=== PATIENT | male | born 1980 ===

== ENCOUNTER 2018-06-17 22:56 | Emergency (ER) | payer MEDICAID ==
[~2018-06-17] VITALS: Ht 170.2 cm; Wt 87.1 kg
[~2018-06-17 22:56] MED LIST: AMOX500 PO; CLIN150 PO; FLUO20 PO; HYDACE5 PO; HYDACE5325 PO; IBUP800 PO; PENVK500 PO
[2018-06-17 23:28] LABS: BASOPHILS ABSOLUTE AUTO 0.03 K/mm3 (0.00-0.23); BASOPHILS PERCENT AUTO 0 % (0-2); EOSINOPHILS ABSOLUTE AUTO 0.55 K/mm3 (0.00-0.68); EOSINOPHILS PERCENT AUTO 6 % (0-6); Hemoglobin 14.9 g/dL (13.5-17.5); IMMATURE GRAN ABSOLUTE AUTO 0.04 K/mm3 (0.00-0.10); IMMATURE GRAN PERCENT AUTO 0 % (0-1); LYMPHOCYTES ABSOLUTE AUTO 3.67 K/mm3 (0.84-5.20); LYMPHOCYTES PERCENT AUTO 37 % (21-46); MONOCYTES ABSOLUTE AUTO 0.76 K/mm3 (0.16-1.47); MONOCYTES PERCENT AUTO 8 % (4-13); Mean Corpuscular HGB 32.3 pg (26.0-34.0); Mean Corpuscular HGB Conc 33.9 g/dL (31.5-36.5); Mean Corpuscular Volume 95 fL (80-100); Mean Platelet Volume 10.4 fL (9.1-12.4); NEUTROPHILS ABSOLUTE AUTO 4.88 K/mm3 (1.96-9.15); NEUTROPHILS PERCENT AUTO 49 % (41-73); Platelet Count 275 K/mm3 (150-400); RDW Coefficient Variation 12.8 % (11.7-14.2); RDW Standard Deviation 44.8 fL (35.1-46.3); Red Blood Cell Count 4.62 M/mm3 (4.30-5.90); White Blood Cell Count 9.93 K/mm3 (4.00-11.30)
[2018-06-17 23:45] LABS: Alanine Aminotransfer (ALT/SGP 80 U/L (12-78); Albumin, Blood 3.5 g/dL (3.4-5.0); Albumin/Globulin Ratio 0.9 (0.8-1.8); Alk Phos 79 U/L (50-136); Anion Gap 6 mmol/L (6-16); Aspartate Aminotrans (AST/SGOT 46 U/L (12-37); Bilirubin, Total 0.4 mg/dL (0.1-1.0); Blood Urea Nitrogen 12 mg/dL (8-24); Bun/Creatinine Ratio 11.8 (12.0-20.0); CO2, Blood 27 mmol/L (21-32); Chloride, Blood 106 mmol/L (98-108); Creatinine, Blood 1.02 mg/dL (0.60-1.20); Globulin, Blood 3.8 g/dL (2.2-4.0); Glomerular Filtration Rate >60 (60-); Glucose, Blood 79 mg/dL (70-99); Potassium, Blood 3.9 mmol/L (3.5-5.5); Sodium, Blood 139 mmol/L (136-145); Total Protein, Blood 7.3 g/dL (6.4-8.2)
[2018-06-18] MEDS ORDERED: METCAR500 PO (03:44)
== END 2018-06-18 03:50 | disposition home or self-care (01) ==
LOC: ER 22:56
PROVIDERS: Emergency Medicine
DX: M54.5 Low back pain (principal); F17.200 Nicotine dependence, unspecified, uncomplicated
CPT/HCPCS: 36415; 80053; 81000; 83690; 85025; 99283

== ENCOUNTER 2019-01-26 08:50 | Emergency (ER) | payer OTHER ==
[~2019-01-26] VITALS: Ht 170.2 cm; Wt 99.8 kg
[~2019-01-26 08:50] MED LIST changes: +METCAR500 PO
[2019-01-26] MEDS ORDERED: CRUTCH4 XX (09:43)
[2019-01-26] MEDS ORDERED: Norco 5-325 Ta1 EACH PO (09:43)
== END 2019-01-26 09:56 | disposition home or self-care (01) ==
LOC: ER 08:50
DX: S82.51XA Displaced fracture of medial malleolus of right tibia, initial encounter for closed fracture (principal); W11.XXXA Fall on and from ladder, initial encounter
CPT/HCPCS: 29515; 73610; 73630; 99283-25; A9270-GY

== ENCOUNTER 2019-02-01 08:24 | Day surgery (SDC) | payer OTHER ==
[~2019-02-01] VITALS: Wt 99.3 kg
[~2019-02-01 08:24] MED LIST changes: +CRUTCH4 XX; +Norco 5-325 Ta1 EACH PO
[2019-02-01] MEDS ORDERED: Norco 7.5-3251 EACH PO (08:52)
--- NOTE | 2019-02-01 08:57 | NUR ---
History, Chart, Medications and Allergies reviewed before start of procedure. Patient confirms NPO status and agrees with scheduled surgery. Lungs clear T/O to Auscultation. Pre-Op teaching done. Pt verbalizes understanding. Patient States Post-Procedure ride home has been arranged. BELONGINGS IN A MARKED BAG UNDER GURNEY. TRACKER CARD EXPLAINED TO , OPPORTUNITY FOR QUESTIONS PROVIDED. NO JEWELRY IN PLACE AT ADMIT.
--- NOTE | 2019-02-01 10:19 | NUR ---
DONALD WRAP, SPLINT & PADDING REMOVED, SMALL AMOUNT OF BRUISING NOTED OVER THE MEDIAL ASPECT OF THE ANKLE. CAREFULLY CLIPPED AND WASHED WITH CHLORHEXIDINE WIPES.
--- NOTE | 2019-02-01 10:32 | NUR ---
FISH PROCESSING SUPERVISOR REPORT COMPLETED AT BEDSIDE WITH MANA ROJAS. WILL WAIT FOR FISH PROCESSING SUPERVISOR CALL TO TRANSPORT TO OR.
--- NOTE | 2019-02-01 11:17 | NUR ---
02/01/19 1117 Celia Ramirez PLACED AROUND PT ABD. DR MCMANUS PLACED A BLOCK IN THE RIGHT LEG AFTER INTUBATION.
--- NOTE | 2019-02-01 12:30 | NUR ---
PT TO STEPDOWN. STATES PAIN LEVEL 5/10 AND IS TOLERABLE AT THIS TIME. SIPPING ON ICE WATER. DENIES NAUSEA. CAP REFILL BRISK TO RIGHT FOOT/TOES. NO NUMBNESS OR TINGLING.
--- NOTE | 2019-02-01 12:44 | NUR ---
PT C/O NAUSEA - MEDICATED WITH IV ZOFRAN AT THIS TIME.
--- NOTE | 2019-02-01 12:49 | NUR ---
PT STATES NAUSEA IMPROVING AT THIS TIME.
--- NOTE | 2019-02-01 13:08 | NUR ---
PT MEDICATED FOR CONTINUED CO NAUSEA WITH IV PHENERGAN PER ORDERS.
--- NOTE | 2019-02-01 13:24 | NUR ---
PT DROWSY AT THIS TIME - WAKES TO VERBAL STIMULI.
--- NOTE | 2019-02-01 13:47 | NUR ---
REVIEWED DISCHARGE INSTRUCTIONS WITH PATIENT AND - BOTH OF WHOM VERBALIZE UNDERSTANDING OF ALL AND ARE ABLE TO REPEAT BACK INSTRUCTIONS. NAUSEA CONTROLLED AND PAIN AT ACCEPTABLE LEVEL PER PATIENT AT THIS TIME. IV D/C TIP INTACT, PIVOT TRANSFER TO AND DC HOME WITH FAMILY TO DRIVE HIM.
== END 2019-02-01 22:42 | disposition home or self-care (01) ==
LOC: ORSCMMR 08:24 → ORD 10:45 → ORSCMMR 22:42
PROVIDERS: Orthopaedic Surgery
PROC: 0QSG04Z Reposition Right Tibia with Internal Fixation Device, Open Approach (ICD-10-PCS; principal; 2019-02-01 10:45)
DX: S82.51XA Displaced fracture of medial malleolus of right tibia, initial encounter for closed fracture (principal); Z87.891 Personal history of nicotine dependence; E66.9 Obesity, unspecified; Z68.34 Body mass index [BMI] 34.0-34.9, adult
CPT/HCPCS: C1713; C1769; J0690; J1100; J1885; J2250; J2405; J2550; J2704; J3010; J7120

== ENCOUNTER 2020-05-21 16:29 | Emergency (ER) | payer OTHER ==
[~2020-05-21] VITALS: Ht 167.6 cm; Wt 93.0 kg
[~2020-05-21 16:29] MED LIST changes: +Norco 7.5-3251 EACH PO
[2020-05-21] MEDS ORDERED: Cleocin HCl300 MG PO (16:45)
== END 2020-05-21 16:55 | disposition home or self-care (01) ==
LOC: ER 16:29
DX: K04.7 Periapical abscess without sinus (principal); F17.210 Nicotine dependence, cigarettes, uncomplicated
CPT/HCPCS: 99282